=== PATIENT | male | born 1990 | race Caucasian/White ===

== ENCOUNTER → 2016-12-01 | Outpatient (CLI) | payer BC ==
[2016-12-01 14:24] LABS: ALT/SGPT 53 U/L (12-78); BLOOD UREA NITROGEN 13 mg/dl (7-18); CARBON DIOXIDE 26 mmol/L (21-32); CHLORIDE 106 mmol/L (98-107); CHOLESTEROL 178 mg/dl (0-200); GLUCOSE 103 mg/dl (70-99); POTASSIUM 3.8 mmol/L (3.5-5.1); SODIUM 139 mmol/L (136-145)
[2016-12-01 14:27] LABS: ALB/GLOB RATIO 1.2 (0.9-2); ALKALINE PHOSPHATASE 85 U/L (45-117); AST/SGOT 28 U/L (15-37); CHOLESTEROL/HDL RATIO 4.6; HDL CHOLESTEROL 39 mg/dl; LDL CHOLESTEROL CALCULATED 96 mg/dl; TRIGLYCERIDES 214 mg/dl (0-150); VERY LOW DENSITY LIPOPROT CALC 43 mg/dl
== END | disposition home or self-care (01) ==
LOC: C.LABPBG 10:11
PROVIDERS: ATTEND Physician Assistant
DX: Z00.00 Encounter for general adult medical examination without abnormal findings (principal)